=== PATIENT | female | born 1960 | race Hispanic/Latino ===

== ENCOUNTER 2020-05-07 06:51 | Day surgery (SDC) | payer MEDICAID ==
[~2020-05-07] VITALS: Ht 157.5 cm; Wt 88.5 kg
[~2020-05-07 06:51] MED LIST: CLOP75TA32 PO; FURO20TA4 PO; GABA-529 PO; INSU100I3 SQ; ISOS30TA6 PO; LOSA100T58 PO; NITR0.4T50 SL; OMEP-272 PO
[2020-05-07] MEDS ORDERED: SODIUM CHLORIDE 0.9% 1000ML 1,000 ML IV ONE (07:03)
[2020-05-07 07:30] VITALS: BP 145/74
[2020-05-07] MEDS ORDERED: LACTULOSE PO (08:44)
[2020-05-07] MEDS ORDERED: ALBUTEROL IH (08:44)
[2020-05-07] MEDS ORDERED: PROPOFOL 10 MG/ML 20ML VIAL IV ONE ×2 (09:47)
[2020-05-07 10:10] VITALS: BP 79/40
[2020-05-07 10:15] VITALS: BP 105/52
[2020-05-07 10:20] VITALS: BP 117/58
[2020-05-07 10:25] VITALS: BP 114/62
== END 2020-05-07 10:35 | disposition home or self-care (01) ==
LOC: ENDO 06:51 → DAH 06:51 → ENDO 10:35
PROVIDERS: ATTEND Internal Medicine
DX: D50.9 Iron deficiency anemia, unspecified (principal); Z20.828 Contact with and (suspected) exposure to other viral communicable diseases; I10 Essential (primary) hypertension; E11.9 Type 2 diabetes mellitus without complications; K74.60 Unspecified cirrhosis of liver; J45.909 Unspecified asthma, uncomplicated; F41.9 Anxiety disorder, unspecified; F32.9 Major depressive disorder, single episode, unspecified; K82.8 Other specified diseases of gallbladder; Z88.8 Allergy status to other drugs, medicaments and biological substances; Z88.1 Allergy status to other antibiotic agents; Z79.899 Other long term (current) drug therapy; Z86.010 Personal history of colon polyps; Z79.4 Long term (current) use of insulin; Z98.890 Other specified postprocedural states
CPT/HCPCS: 45378; 82948 ×2; 93005; A4215 ×2; A4221; A4222; A4223; A4606; A4620; A4657; A4663; C9803; J2704 ×2; J7030 ×2; U0003